=== PATIENT | male | born 1960 | race Caucasian/White ===

== ENCOUNTER 2021-06-01 01:02 | Day surgery (SDC) | payer BC, SELFPAY ==
[2021-05-28 08:43] VITALS: BMI 30.1
--- NOTE | 2021-06-01 07:22 | PM.HPGS ---
History of Present Illness History of Present Illness Consent: Risks, benefits, and alternatives have been discussed and questions answered. Patient agrees to proceed with procedure. Chief complaint: dysphagia Narrative: Nemesio Toussaint is a 61 year old male referred because of epigastric discomfort and dysphagia. He feels like food is getting stuck in his lower esophagus. This had been going on for almost 20 years. Primarily meat is what would get stuck. If he waits for a while it will eventually pass. He was just recently started on omeprazole. Review of Systems Review of Systems: All systems reviewed & are unremarkable except as noted in HPI and below PMFSH Family History Family History Mother Cerebrovascular accident Social History Social History Smoking status: Never smoker (former smoker ) Alcohol intake: never Substance use: never Substance use type: does not use Living arrangements: with family Spiritual care concerns: No Meds Home Medications and Allergies Home Medications Medication Instructions Recorded Confirmed Type omeprazole 40 mg capsule,delayed 40 mg PO DAILY #90 cap 05/14/21 06/01/21 Rx release sildenafil 100 mg tablet 100 mg PO DAILY PRN #30 tablet 05/14/21 06/01/21 Rx calcium-mag oxide-vitamin D3 1 tab-cap PO DAILY 05/28/21 06/01/21 History Allergies Allergy/AdvReac Type Severity Reaction Status Date / Time No Known Allergies Allergy Verified 06/01/21 08:59 Exam Const: General: alert Orientation/consciousness: patient oriented x3 Resp: Auscultation: clear to auscultation bilaterally Cardio: Rhythm: regular rhythm GI: GI Palp: Yes Soft to palpation and No Tenderness to palpation present (GI) Neuro: General: patient oriented x3 Assessment and Plan Assessment and plan (1) Dysphagia: Qualifiers: Dysphagia type: unspecified Qualified Code(s): R13.10 - Dysphagia, unspecified Code(s): R13.10 - Dysphagia, unspecified Status: Acute Assessment and Plan: EGD with possible biopsy or dilatation or cautery.
[2021-06-01 09:00] VITALS: BP 134/80; PULSE 74; RESP 17; TEMP 36.3; O2SAT 98; BMI 30.6
[2021-06-01] MEDS: LACTATED RINGERS 1,000 ML 150 ML IV CONT (09:09)
--- NOTE | 2021-06-01 09:52 | P.PNAN_ITS ---
Anes - Initial Pre Proc Eval Procedure: Operation Date: 06/01/21 10:00 Proposed Procedures p Esophagogastroduodenoscopy - Flavio Turcios MD Date/Time: 06/01/21 09:52 Surgeon: Flavio Turcios MD Pre Op Diagnosis: dysphagia Patient Data Age: 61 Gender: M Height: 1.8 m Weight: 99.6 kg Last Vital Signs Temp 36.3 C L 06/01/21 09:00 Pulse 74 06/01/21 09:00 Resp 17 06/01/21 09:00 BP 134/80 06/01/21 09:00 Pulse Ox 98 06/01/21 09:00 Allergies Allergy/AdvReac Type Severity Reaction Status Date / Time No Known Allergies Allergy Verified 06/01/21 08:59 Home Medications Medication Instructions Recorded Confirmed Type omeprazole 40 mg capsule,delayed 40 mg PO DAILY #90 cap 05/14/21 06/01/21 Rx release sildenafil 100 mg tablet 100 mg PO DAILY PRN #30 tablet 05/14/21 06/01/21 Rx calcium-mag oxide-vitamin D3 1 tab-cap PO DAILY 05/28/21 06/01/21 History Patient hx anesthesia problems: none Family hx anesthesia problems: none Results Review: All pre-operative results and documents have been reviewed as part of the pre-operative evaluation. [facility] Surgical History Surgical History (Updated 06/01/21 @ 09:53 by Alexander Shankar MD) H/O hernia repair Family History Family History Mother Cerebrovascular accident Social History Social History Smoking status: Never smoker (former smoker ) Alcohol intake: never Substance use: never Substance use type: does not use Living arrangements: with family Spiritual care concerns: No Anes - Eval Final PreProcedure Day of Procedure 06/01/21 09:52 Patient weight: obese Heart: regular rate and rhythm Lungs: clear to auscultation Airway: Mallampati scale class II Neurological: alert and oriented Last oral intake: >/= 8 hours ASA classification: II Emergent: no Anesthetic plan: proceed Anesthesia type and monitoring: general GIVS and standard monitoring Results Review: All pre-operative results and documents have been reviewed as part of the pre-operative evaluation. Informed Consent: The patient's anesthetic plan and its attendant risks and benefits were discussed with the patient/family/POA. Questions were solicited and answers provided to the satisfaction of the patient/family/POA.
[2021-06-01 10:44] VITALS: BP 102/74; PULSE 69; RESP 23; O2SAT 100
[2021-06-01 10:54] VITALS: BP 95/69; PULSE 64; RESP 18; O2SAT 99
[2021-06-01 11:04] VITALS: BP 112/72; PULSE 58; RESP 17; O2SAT 99
== END 2021-06-01 11:18 | disposition home or self-care (01) ==
PROVIDERS: PCP Family Medicine; Visit Provider Internal Medicine Gastroenterology
PROC: 0DJ08ZZ Inspection of Upper Intestinal Tract, Via Natural or Artificial Opening Endoscopic (ICD-10-PCS; CPT 43235; principal; 2021-06-01 10:00)
DX: R13.10 Dysphagia, unspecified (principal); K22.2 Esophageal obstruction; K21.00 Gastro-esophageal reflux disease with esophagitis, without bleeding; K22.10 Ulcer of esophagus without bleeding
CPT/HCPCS: 43249; 43239; 88305; C1726; J2001; J2704; J7120

== ENCOUNTER 2022-05-06 01:00 | Day surgery (SDC) | payer BC, SELFPAY ==
[2022-04-26 14:59] VITALS: BMI 30.1
--- NOTE | 2022-05-03 12:43 | PM.HPGS ---
History of Present Illness History of Present Illness Consent: Risks, benefits, and alternatives have been discussed and questions answered. Patient agrees to proceed with procedure. Chief complaint: GERD Narrative: Nemesio Toussaint Jr. is a 61 year old male with history of severe reflux esophagitis and esophageal stricture which was last treated about 1 year ago. he had been started on omeprazole took it twice a day for about 6 weeks. Now he takes it once a day. He has learned to get by by chewing very thoroughly and avoiding stiff meats such as steak. He mostly eats ground beef. Review of Systems Review of Systems: All systems reviewed & are unremarkable except as noted in HPI and below PMFSH Surgical History Surgical History H/O hernia repair Family History Family History Mother Cerebrovascular accident Social History Social History Smoking status: Never smoker (former smoker ) Alcohol intake: never Substance use: never Substance use type: does not use Lack of Transportation: No Lack of Food: Never True Current Housing: I Have Housing Concerned About Future Housing: No Difficulty Paying Gas/Electric Bills: No Difficulty Paying for Meds: No Currently Unemployed: No Education: High School Diploma/GED Difficulty w/ Childcare or Family Care: No Living arrangements: with family Spiritual care concerns: No Meds Home Medications and Allergies Home Medications Medication Instructions Recorded Confirmed Type sildenafil 100 mg tablet (Viagra) 100 mg PO DAILY PRN sexual 05/14/21 03/20/22 Rx activity #30 tabs calcium-mag oxide-vitamin D3 1 tab-cap PO DAILY 05/28/21 04/26/22 History omeprazole 40 mg capsule,delayed 40 mg PO DAILY #90 caps 03/20/22 04/26/22 Rx release Allergies Allergy/AdvReac Type Severity Reaction Status Date / Time No Known Allergies Allergy Verified 05/06/22 07:47 Exam Const: General: alert Orientation/consciousness: patient oriented x3 Resp: Auscultation: clear to auscultation bilaterally Cardio: Rhythm: regular rhythm GI: GI Palp: Yes Soft to palpation and No Tenderness to palpation present (GI) Neuro: General: patient oriented x3 Assessment and Plan Assessment and plan (1) Dysphagia: Qualifiers: Dysphagia type: unspecified Qualified Code(s): R13.10 - Dysphagia, unspecified Code(s): R13.10 - Dysphagia, unspecified Status: Acute Assessment and Plan: EGD with possible biopsy or dilatation or cautery.
[2022-05-06 07:48] VITALS: BP 150/75; PULSE 78; RESP 20; TEMP 36.2; O2SAT 96
[2022-05-06] MEDS: LACTATED RINGERS 1,000 ML 150 ML IV CONT (08:03)
--- NOTE | 2022-05-06 08:23 | WPDANESEPPF ---
Anes - Initial Pre Proc Eval Procedure: Operation Date: 05/06/22 09:00 Proposed Procedures p Esophagogastroduodenoscopy - Flavio Turcios MD Date/Time: 05/06/22 08:23 Surgeon: Flavio Turcios MD Pre Op Diagnosis: GERD Patient Data Age: 61 Gender: M Height: 1.8 m Weight: 104.2 kg Last Vital Signs Temp 36.2 C L 05/06/22 07:48 Pulse 78 05/06/22 07:48 Resp 20 05/06/22 07:48 BP 150/75 H 05/06/22 07:48 Pulse Ox 96 05/06/22 07:48 O2 Del Method Room Air 05/06/22 07:48 Allergies Allergy/AdvReac Type Severity Reaction Status Date / Time No Known Allergies Allergy Verified 05/06/22 07:47 Home Medications Medication Instructions Recorded Confirmed Type sildenafil 100 mg tablet (Viagra) 100 mg PO DAILY PRN sexual 05/14/21 03/20/22 Rx activity #30 tabs calcium-mag oxide-vitamin D3 1 tab-cap PO DAILY 05/28/21 04/26/22 History omeprazole 40 mg capsule,delayed 40 mg PO DAILY #90 caps 03/20/22 04/26/22 Rx release Patient hx anesthesia problems: none Family hx anesthesia problems: none Results Review: All pre-operative results and documents have been reviewed as part of the pre-operative evaluation. [facility] Surgical History Surgical History H/O hernia repair Family History Family History Mother Cerebrovascular accident Social History Social History (Updated 03/20/22 @ 14:27 by Levon Barclay MA) Smoking status: Never smoker (former smoker ) Alcohol intake: never Substance use: never Substance use type: does not use Lack of Transportation: No Lack of Food: Never True Current Housing: I Have Housing Concerned About Future Housing: No Difficulty Paying Gas/Electric Bills: No Difficulty Paying for Meds: No Currently Unemployed: No Education: High School Diploma/GED Difficulty w/ Childcare or Family Care: No Living arrangements: with family Spiritual care concerns: No Anes - Eval Final PreProcedure Day of Procedure 05/06/22 08:23 Patient weight: obese Heart: regular rate and rhythm Lungs: clear to auscultation Airway: Mallampati scale class II Neurological: alert and oriented Last oral intake: >/= 8 hours ASA classification: II Emergent: no Anesthetic plan: proceed Anesthesia type and monitoring: general GIVS and standard monitoring Results Review: All pre-operative results and documents have been reviewed as part of the pre-operative evaluation. Informed Consent: The patient's anesthetic plan and its attendant risks and benefits were discussed with the patient/family/POA. Questions were solicited and answers provided to the satisfaction of the patient/family/POA.
[2022-05-06 09:09] VITALS: BP 114/83; PULSE 79; RESP 19; O2SAT 98
[2022-05-06 09:19] VITALS: BP 120/79; PULSE 66; RESP 18; O2SAT 98
[2022-05-06 09:29] VITALS: BP 117/80; PULSE 61; RESP 19; O2SAT 97
== END 2022-05-06 09:41 | disposition home or self-care (01) ==
PROVIDERS: PCP Family Medicine; Visit Provider Internal Medicine Gastroenterology
PROC: 0DJ08ZZ Inspection of Upper Intestinal Tract, Via Natural or Artificial Opening Endoscopic (ICD-10-PCS; CPT 43235; principal; 2022-05-06 09:00)
DX: R13.10 Dysphagia, unspecified (principal); K22.2 Esophageal obstruction; K21.9 Gastro-esophageal reflux disease without esophagitis; K44.9 Diaphragmatic hernia without obstruction or gangrene
CPT/HCPCS: 43249; 43239; C1726; J2704; J7120

== ENCOUNTER 2022-06-30 23:40 | Observation (INO) | payer BC, SELFPAY ==
--- NOTE | ~2022-06-30 | US_ITS ---
EXAMINATION: US abdomen limited DATE: 07/01/2022 08:55 INDICATION: Epigastric and right upper quadrant abdominal pain. TECHNIQUE: Multiple grayscale and Doppler ultrasound images of the abdomen were obtained. COMPARISON: CT abdomen and pelvis 07/01/2022 FINDINGS: The pancreas is obscured by bowel gas. There is diffuse hepatic steatosis. There is normal flow in main portal vein. The gallbladder is normal in size and contains sludge. No visible gallstone . Gallbladder wall thickening is noted. There is no sonographic Steiner sign. The common duct is terri l and measures 5 mm. IMPRESSION: 1. Gallbladder sludge and gallbladder wall thickening, which is indeterminate for acute cholecystitis . Consider hepatobiliary scintigraphy. 2. Diffuse hepatic steatosis. Reviewed, dictated and finalized at location A. IMPRESSION: 1. Gallbladder sludge and gallbladder wall thickening, which is indeterminate f or acute cholecystitis. Consider hepatobiliary scintigraphy. 2. Diffuse hepatic steatosis.
--- NOTE | ~2022-06-30 | CT_ITS ---
EXAMINATION: CT abdomen pelvis w con DATE: 07/01/2022 01:38 INDICATION: Epigastric abdominal pain. TECHNIQUE: Computed tomography (CT) of the abdomen and pelvis was performed with 100 mL Omnipaque 350 intravenous contrast. Automated exposure control and iterative reconstruction technique were employe d. The dose-length product was 784.15 mGy-cm. COMPARISON: None. FINDINGS: The visualized portions of the lung bases demonstrated mild atelectasis. A calcified right lung nodule is consistent with old granulomatous disease. No pleural effusion. The heart size is norm al. No pericardial effusion. There is a small sliding hiatal hernia. The liver is normal. Calcificati ons in the spleen are consistent with old granulomatous disease. The gallbladder is distended. Gallbl adder wall thickening is noted. The pancreas, adrenal glands, and kidneys are normal. There is a righ t inguinal hernia containing fat. There is diverticulosis of the colon without evidence of diverticul itis. There are no dilated loops of bowel. The appendix is normal. There are no pathologically enlarg ed lymph nodes. There is no free intraperitoneal fluid. The prostate is mildly enlarged. There is sev ere lumbar spondylosis. IMPRESSION: 1. Acute cholecystitis. 2. Right inguinal hernia containing fat. 3. Small sliding hiatal hernia. Reviewed, dictated and finalized at location A.
[2022-06-30 23:42] VITALS: BP 146/84; PULSE 90; RESP 16; TEMP 36.7; O2SAT 98
[2022-07-01] VITALS (15 sets, daily range): BP systolic 125–147; BP diastolic 74–92; PULSE 60–79; RESP 13–27; TEMP 36.5–37; O2SAT 90–100; BMI 31.4
--- NOTE | 2022-07-01 00:21 | ECG_ITS ---
Measurements Intervals [place] Rate: 72 P: 42 [place]: 168 QRS: 33 QRSD: 93 T: 9 QT: 376 QTc: 413 Interpretive Statements SINUS RHYTHM BASELINE ARTIFACT- I, III, AVL NORMAL ECG NO PREVIOUS ECG AVAILABLE FOR COMPARISON Electronically Signed On 07-01-2022 6:43:07 CDT by Chi Todd D.O.
[2022-07-01] MEDS: SODIUM CHLORIDE 0.9% IV 1,000 ML 999 ML IV CONT ×2 (00:47→03:37)
[2022-07-01] MEDS: FAMOTIDINE 20 MG/2 ML VIAL IV PUSH ×2 (00:49→08:53)
[2022-07-01] MEDS: PANTOPRAZOLE SODIUM IV 40 MG VIAL IV PUSH ×2 (00:49→08:53)
[2022-07-01 00:50] LABS: Basophils Absolute Auto 0.1 K/mm3 (0.0-0.1); Basophils Percent Auto 0.6 % (0.2-1.2); Eosinophils Absolute Auto 0.2 K/mm3 (0-0.3); Hematocrit 42.5 % (42.0-52.0); Hemoglobin 14.5 g/dL (14.0-18.0); Immature Granulocyte Absolute 0.03 K/mm3 (0.00-0.031); Immature Granulocyte Percent A 0.3 % (0-0.5); Lymphocytes Absolute Auto 1.04 K/mm3 (0.9-3.2); Mean Corpuscular HGB Conc 34.1 g/dl (32-36); Mean Corpuscular Hemoglobin 30.1 pg (26-34); Mean Corpuscular Volume 88.4 fl (80-100); Mean Platelet Volume 9.1 fl (7.4-10.4); Monocytes Absolute Auto 0.8 K/mm3 (0.1-0.6); Monocytes Percent Auto 8.3 % (2.6-8.5); Neutrophils Absolute Auto 7.4 K/mm3 (1.3-6.7); Neutrophils Percent Auto 77.8 % (45.5-73.1); Platelet Count Result 196 k/mm3 (150-375); Red Blood Count 4.81 M/mm3 (4.6-6.20); Red Cell Distribution Width 12.1 % (11.5-14.5); White Blood Count 9.5 K/mm3 (4.5-10.0)
--- NOTE | 2022-07-01 00:53 | PC.NURSE ---
After drawing up the reglan, patient then refused medication. Patient also refused IV morphine. Reglan was wasted and the morphine returned to the [facility].
[2022-07-01 01:02] LABS: Alanine Aminotransferase 24 U/L (6-50); Albumin Level 4.4 g/dL (3.5-5.1); Alkaline Phosphatase 84 U/L (38-126); Anion Gap 9 mmol/L (8-16); Aspartate Amino Transferase 31 U/L (17-59); Bilirubin,Total 1.5 mg/dL (0.2-1.3); Blood Urea Nitrogen 19 mg/dL (9-20); Calcium 8.9 mg/dL (8.4-10.2); Carbon Dioxide 27 mmol/L (22-30); Chloride 102 mmol/L (98-107); Estimated CRCL calculation 81 ml/min; Estimated Glomerular Filt Rate > 60; Glucose 116 mg/dL (65-110); Lipase 81 U/L (23-300); Magnesium 1.8 mg/dL (1.6-2.3); Potassium 3.4 mmol/L (3.4-5.0); Sodium 138 mmol/L (137-145)
[2022-07-01 01:03] LABS: Lactic Acid Reflex 1.1 mmol/L (0.7-2.0)
[2022-07-01 01:13] LABS: Troponin I < 0.012 ng/mL (0.000-0.034)
[2022-07-01 02:20] LABS: Appearance Urine Clear (Clear); Bilirubin Urine Negative (Negative); Blood Urine Negative (Negative); Color Urine Yellow (Yellow); Glucose Urine UA Negative (Negative); Ketones Urine 1+ mg/dL (Negative); Leukocyte Esterase Ur Negative LEU/UL (Negative); Nitrate Urine Negative (Negative); Protein Urine Negative (Negative); pH Urine 6.5 (5.0-9.0)
[2022-07-01 02:22] LABS: Specific Grav Ur 1.058 (1.001-1.035)
[2022-07-01 03:18] LABS: Add Urine Microscopic? NO
--- NOTE | 2022-07-01 03:27 | ED.GENADULT ---
HPI - General Adult General Chief complaint: Abdominal Pain Stated complaint: abdominal/epigastric pain Time Seen by Provider: 07/01/22 00:15 History of Present Illness HPI narrative: Patient is a 62-year-old gentleman who presents the emergency department with chief complaint of epigastric pain. The patient reports that he has had issues with esophageal strictures and reports that he was scoped about a month ago and had stretching done at that time. Patient reports that for the last week he has had pain in the epigastric region reports that it does not radiate anywhere reports that its not improved by anything Related Data Home Medications Medication Instructions Recorded Confirmed calcium-mag oxide-vitamin D3 1 tab-cap PO DAILY 05/28/21 04/26/22 Allergies Allergy/AdvReac Type Severity Reaction Status Date / Time No Known Allergies Allergy Verified 06/30/22 23:41 Review of Systems Review of Systems: A 10 system review of systems was completed on the patient and is negative except for what is stated in the HPI. Nursing and ancillary documentation was reviewed. [facility] Surgical History Surgical History H/O hernia repair Family History Family History Mother Cerebrovascular accident Social History Social History Smoking status: Never smoker (former smoker ) Alcohol intake: never Substance use: never Substance use type: does not use Lack of Transportation: No Lack of Food: Never True Current Housing: I Have Housing Concerned About Future Housing: No Difficulty Paying Gas/Electric Bills: No Difficulty Paying for Meds: No Currently Unemployed: No Education: High School Diploma/GED Difficulty w/ Childcare or Family Care: No Living arrangements: with family Spiritual care concerns: No Exam Narrative: GENERAL: Well-appearing, well-nourished, and in no acute distress. HEAD: Normocephalic, atraumatic. EYES: PERRLA and EOMI. ENT: Nares clear, no rhinorrhea or epistaxis. Mucous membranes moist. NECK: Supple. CHEST: Clear to auscultation. No respiratory distress. HEART: Regular rate and rhythm. No murmur heard. Normal peripheral pulses. ABDOMEN: Soft, mild tenderness in the epigastric region, nondistended, normal active bowel sounds. EXTREMITIES: Normal range of motion. No edema. SKIN: Warm, dry, no rash. NEURO: No focal deficits. Alert and oriented x3. PSYCH: Normal mood and affect. Course Vital Signs Vital signs: Vital Signs Temperature 36.7 C 06/30/22 23:42 Pulse Rate 90 06/30/22 23:42 Respiratory Rate 16 06/30/22 23:42 Blood Pressure 146/84 H 06/30/22 23:42 Pulse Oximetry 98 06/30/22 23:42 Oxygen Delivery Room Air 06/30/22 23:42 Temperature 36.7 C 06/30/22 23:42 Pulse Rate 66 07/01/22 02:31 Respiratory Rate 14 07/01/22 02:31 Blood Pressure 147/82 H 07/01/22 02:31 Pulse Oximetry 98 07/01/22 02:18 Oxygen Delivery Room Air 06/30/22 23:42 Medical Decision Making [facility] Narrative Medical decision making narrative: Differential diagnosis includes gastritis, cholelithiasis, cholecystitis, acalculous cholecystitis pancreatitis, Oratory studies were obtained showed a normal white blood cell count at 9.5 electrolytes were obtained which were within normal limits liver enzymes showed a normal AST and normal ALT and a bilirubin of 1.5. Due to the patient having epigastric pain and EKG and troponin were checked that showed no evidence of acute findings troponin was less than 0.012 and EKG showed sinus rhythm with a rate of [address] elevation or ST depression CT scan of the abdomen pelvis was obtained which showed some abnormal pericholecystic edema no mention to cholelithiasis was noted on the exam no evidence of bowel obstruction appendicitis
--- NOTE | 2022-07-01 04:26 | PM.IMHP ---
H&P: HPI History of Present Illness Date/Time: 07/01/22 04:26 Chief Complaint: Epigastric pain Narrative: This is a 62-year-old male with past medical history significant for esophageal stricture status post dilatation. Patient presents to the emergency room due to epigastric pain for the last 3 days with poor per orally intake took ibuprofen but did not relieve denies any nausea, vomiting, diarrhea, hematemesis, coffee-ground emesis, bright red blood per rectum, melena, no weight loss, patient has been his usual state of health up until this point, pain is localized to the epigastric area nonradiating no relationship with food intake, relieved by pain medication, rated at 5 to 7/10 in intensity it is achy pain, nagging. Preliminary report CT of abdomen and pelvis was reported as: EXAMINATION: CT abdomen pelvis w con DATE: 07/01/2022 01:38 INDICATION: Epigastric abdominal pain. TECHNIQUE: Computed tomography (CT) of the abdomen and pelvis was performed with 100 mL Omnipaque 350 intravenous contrast. Automated exposure control and iterative reconstruction technique were employed. The dose-length product was 784.15 mGy-cm. COMPARISON: None. FINDINGS: The visualized portions of the lung bases demonstrated mild atelectasis. A calcified right lung nodule is consistent with old granulomatous disease. No pleural effusion. The heart size is normal. No pericardial effusion. There is a small sliding hiatal hernia. The liver is normal. Calcifications in the spleen are consistent with old granulomatous disease. The gallbladder is distended. Gallbladder wall thickening is noted. The pancreas, adrenal glands, and kidneys are normal. There is a right inguinal hernia containing fat. There is diverticulosis of the colon without evidence of diverticulitis. There are no dilated loops of bowel. The appendix is normal. There are no pathologically enlarged lymph nodes. There is no free intraperitoneal fluid. The prostate is mildly enlarged. There is severe lumbar spondylosis. IMPRESSION: 1. Acute cholecystitis. 2. Right inguinal hernia containing fat. 3. Small sliding hiatal hernia. Patient is been placed in observation for further evaluation management and treatment. Review of Systems Review of Systems: Epigastric pain Constitutional: Constitutional: Denies chills, Denies fatigue, Denies fever(s), Denies lethargy, Denies malaise, Denies night sweats, Denies poor appetite, Denies weakness and Denies weight loss Eyes: Eyes: Denies change in vision ENT: Denies dysphagia and Denies odynophagia Cardiovascular: Cardiovascular: Denies chest pain, Denies leg edema, Denies lightheadedness and Denies palpitations Respiratory: Respiratory: Denies chest congestion and Denies excessive phlegm production Gastrointestinal: Gastrointestinal: Reports abdominal pain, Denies melena, Denies hematochezia, Denies coffee ground emesis, Denies dyspepsia, Denies heartburn, Denies diarrhea, Denies nausea and Denies vomiting Genitourinary: Genitourinary: Denies dysuria Musculoskeletal: Musculoskeletal: Denies back pain, Denies myalgias and Denies joint swelling Integumentary/Breasts: Skin/Breast: Denies rash Neurologic: Denies vertigo, Denies dizziness, Denies focal weakness and Denies Sensory deficit (Neuro) Psychiatric: Psychiatric: Reports no additional psychiatric complaints and Reports as per HPI Endocrine: Endocrine: Denies cold intolerance, Denies flushing, Denies heat intolerance, Denies polyphagia, Denies polydipsia and Denies palpitations Hematologic/Lymphatic: Hematologic/Lymphatic: Reports no additional hematologic/lymphatic complaints and Reports as per HPI Allergic/Immunologic: Allergic/Immunologic: Reports no additional allergic/immunologic complaints and Reports as per HPI [facility] Surgical History Surgical History H/O hernia repair Family History Family History (Reviewed 07/01/22 @ 08:11
--- NOTE | 2022-07-01 05:02 | PC.NURSE ---
Attempted to call report, 3rd Charge said RN taking patient would call back when ready.
--- NOTE | 2022-07-01 05:16 | PC.NURSE ---
0514 Attempted to call report, spoke to Kumar, she stated the RN taking the patient is still in the room and unavailable. This nurse asked if we could bring the patient up, she stated I can't say. ER money order clerk aware.
[2022-07-01] MEDS: SODIUM CHLORIDE 0.9% IV 1,000 ML 125 ML IV CONT ×2 (05:52→15:47)
--- NOTE | 2022-07-01 06:03 | ADMGEN ---
This patient, Nemesio Toussaint Jr., was admitted to [facility] Surg Room 331-02 at 0535. Patient/family oriented to hospital policies and general routines including ID bracelet, bed and alarms, visiting hours, pain management, procedures, bathroom and other care routines, personal items, smoking policy, room service/diet, and visiting hours. Information on how to activate the Rapid Response Team has been discussed. Patient/Family are encouraged to report perceived risks to care and to ask questions if they do not understand what they are told or what they should do.
--- NOTE | 2022-07-01 08:08 | PM.CNGS ---
Assessment and Plan Assessment and plan (1) Epigastric pain: Code(s): R10.13 - Epigastric pain Status: Acute Assessment and Plan: Pain is improving with little treatment. Agree with ultrasound. If patient does have gallstones would need to have elective outpatient laparoscopic cholecystectomy. If no gallstones could probably be discharged on low-fat diet and follow up in the office for further management. Thank you for asking us to see this patient in consultation. History of Present Illness Consult details Consult date: 07/01/22 Reason for consult: abdominal pain Requesting physician: Roel Reed MD Narrative: Patient is a 62-year-old man who 4-5 days ago started noticing some upper abdominal pain. It started in the right upper quadrant but then moved to the epigastric area. It was particularly bad Friday and yesterday. He came to the emergency room where he was noted to have epigastric tenderness. Cardiac evaluation was performed and was negative for acute coronary syndrome. He had a CT scan of the abdomen and pelvis which showed gallbladder wall thickening and some gallbladder distention. No stones were noted. He had a shorter and milder episode of this several weeks ago which resolved on its own. He has no family history of gallbladder disease. He has not had any pain medication and reports that his pain is much improved from when he went to the emergency room. He has not had any nausea vomiting or fever. He was admitted for persistent epigastric abdominal pain and is scheduled to have an ultrasound today. He is seen now in consultation. He does have a history of esophageal reflux and stricture. He had 2 esophageal dilatations, the last was just couple of months ago per Dr. Turcios. Review of Systems Review of Systems: All systems reviewed & are unremarkable except as noted in HPI and below (HPI and those items noted below) Constitutional: Constitutional: Denies chills and Denies fever(s) Cardiovascular: Cardiovascular: Denies chest pain, Denies diaphoresis, Denies dyspnea and Denies paroxysmal nocturnal dyspnea Respiratory: Respiratory: Denies chest congestion, Denies cough and Denies dyspnea Integumentary/Breasts: Skin/Breast: Denies lesions and Denies rash [facility] Surgical History Surgical History H/O hernia repair Family History Family History Mother Cerebrovascular accident Social History Social History Smoking status: Former smoker Tobacco type: cigarettes Alcohol intake: never Substance use: never Substance use type: does not use Lack of Transportation: No Lack of Food: Never True Current Housing: I Have Housing Concerned About Future Housing: No Difficulty Paying Gas/Electric Bills: No Difficulty Paying for Meds: No Currently Unemployed: No Education: High School Diploma/GED Difficulty w/ Childcare or Family Care: No Living arrangements: with family Spiritual care concerns: No Meds Home Medications and Allergies Home Medications Medication Instructions Recorded Confirmed Type calcium-mag oxide-vitamin D3 1 tab-cap PO DAILY 05/28/21 07/01/22 History omeprazole 40 mg capsule,delayed 40 mg PO DAILY #90 caps 03/20/22 07/01/22 Rx release Allergies Allergy/AdvReac Type Severity Reaction Status Date / Time No Known Allergies Allergy Verified 06/30/22 23:41 Vital Signs Vital Signs - 24 hr 06/30/22 23:42 07/01/22 00:38 07/01/22 00:46 Temperature 36.7 C Pulse Rate 90 70 66 Respiratory Rate 16 27 H 15 Blood Pressure 146/84 H 131/84 135/92 H Pulse Oximetry 98 98 98 Oxygen Delivery Room Air 07/01/22 01:01 07/01/22 02:18 07/01/22 02:31 Temperature Pulse Rate 69 68 66 Respiratory Rate 16 14 14 Blood Pressure 142/83 H 144/81 H 147/82 H Pul
--- NOTE | 2022-07-01 18:29 | PM.DS ---
DS: Admitting Diagnosis Discharge Date 07/01/22 Admitting Diagnosis abd pain DS: Discharge Diagnosis Discharge Diagnosis (1) Epigastric pain: Code(s): R10.13 - Epigastric pain Status: Acute Assessment and Plan: us negative (2) Esophageal reflux: Qualifiers: Esophagitis presence: without esophagitis Qualified Code(s): K21.9 - Gastro-esophageal reflux disease without esophagitis Code(s): K21.9 - Gastro-esophageal reflux disease without esophagitis Status: Acute Assessment and Plan: PPI (3) Dysphagia: Qualifiers: Dysphagia type: unspecified Qualified Code(s): R13.10 - Dysphagia, unspecified Code(s): R13.10 - Dysphagia, unspecified Status: Acute Assessment and Plan: Esophageal stricture status post dilatation 2 months ago DS: Summary Hospital Course Hospital Course: Admitted for abdominal pain - crowder unrevealing - fu with general surgery for possible outpatient cholecystectomy Time Spent with Patient Time attestation: Total time spent providing and/or coordinating discharge services: Exam Const: General: comfortable, no acute distress, well developed, alert, awake, average body habitus and other (Well-appearing) Nutritional Appearance: average body habitus Orientation/consciousness: patient oriented x3 HENMT: Head: normal to inspection, normocephalic and atraumatic Ears: hearing grossly normal bilaterally Face/Nose/Sinus: normal facial exam Face and sinus: normal facial exam Eyes: General: appearance normal, both eyes and all related structures Pupils: Equal, round and reactive pupils present EOM: EOMs intact bilaterally Neck: Neck: full ROM, no lymphadenopathy and no JVD Thyroid: thyroid normal Lymphatic: no lymphadenopathy noted Resp: Effort & Inspection: normal respiratory effort and able to speak in complete sentences Auscultation: clear to auscultation bilaterally Cardio: Jugular venous distension: no JVD Rate: regular rate Rhythm: regular rhythm Heart sounds: S1 normal heart sound present and S2 normal heart sound present GI: Inspection: normal to inspection : General: Yes deferred Skin: Rashes: no rashes Wounds: no wounds Neuro: General: patient oriented x3 and CN's II-XI intact bilaterally Cranial nerves: Yes CN's II-XII intact bilaterally and Yes Equal, round and reactive pupils present Cognition (Neuro): normal cognition Speech: normal speech Gait exam (Neuro): Normal gait present Motor exam (neuro): 5/5 motor strength present throughout Sensory Exam: No Sensory deficit (Neuro) Extrem: General: normal to inspection, full ROM, no joint enlargement and no pedal edema DS: Data Data Completed and Pending Labs on day of discharge: Labs from last 24 hours 07/01/22 07/01/22 02:11 00:44 WBC 9.5 RBC 4.81 Hgb 14.5 Hct 42.5 MCV 88.4 MCH 30.1 MCHC 34.1 RDW 12.1 Plt Count 196 MPV 9.1 Immature Gran % (Auto) 0.3 Neut % (Auto) 77.8 H Lymph % (Auto) 11.0 L [place] % (Auto) 8.3 Eos % (Auto) 2.0 Baso % (Auto) 0.6 Lymph # (Auto) 1.04 [place] # (Auto) 0.8 H Eos # (Auto) 0.2 Baso # (Auto) 0.1 Abs Immat Gran (auto) 0.03 Absolute Neuts (auto) 7.4 H Absolute Nucleated RBC 0.0 Nucleated RBC % 0.0 Sodium 138 Potassium 3.4 Chloride 102 Carbon Dioxide 27 Anion Gap 9 BUN 19 Creatinine 1.00 Estim Creat Clear Calc 81 Estimated GFR > 60 Glucose 116 H Lactic Acid 1.1 Calcium 8.9 Magnesium 1.8 Total Bilirubin 1.5 H AST 31 ALT 24 Alkaline Phosphatase 84 Troponin I < 0.012 Total Protein 8.0 Albumin 4.4 Lipase 81 Urine Color Yellow Urine Appearance Clear Urine pH 6.5 Ur Specific Velma 1.058 H Urine Protein Negative Urine Glucose (UA) Negative Urine Ketones 1+ H Ur Blood (Man) Negative Urine Nitrate Negative Urine Bilirubin Negative Urine Urobilinogen 1.0 Leukocyte Esterase Rfl Negative
== END 2022-07-01 18:50 | disposition home or self-care (01) ==
LOC: ANHED 07-01 04:28 → ANH3MEDSUR 07-01 05:24
PROVIDERS: Admitting Provider Internal Medicine; Emergency Provider Emergency Medicine; PCP Family Medicine; Visit Provider Chiropractor
DX: K21.9 Gastro-esophageal reflux disease without esophagitis (principal); R13.10 Dysphagia, unspecified; J98.11 Atelectasis; J98.4 Other disorders of lung; K76.0 Fatty (change of) liver, not elsewhere classified; K40.90 Unilateral inguinal hernia, without obstruction or gangrene, not specified as recurrent; K57.90 Diverticulosis of intestine, part unspecified, without perforation or abscess without bleeding; K81.0 Acute cholecystitis; Z79.899 Other long term (current) drug therapy; Z87.891 Personal history of nicotine dependence
CPT/HCPCS: 36415; 74177; 76705; 80053; 81003; 83605; 83690; 83735; 84484; 85025; 93005; 96361; 96374; 96375; 96376; 99285; C9113; G0378; J7030; Q9967

== ENCOUNTER 2022-07-06 23:12 | Inpatient (IN) | payer BC, SELFPAY ==
--- NOTE | ~2022-07-06 | XR_ITS ---
EXAMINATION: XR ERCP DATE: 07/08/2022 08:57 INDICATION: Jaundice. Abnormal liver function tests. Abnormal pancreatic test. TECHNIQUE: 2 spot fluoroscopic images of the right upper quadrant were obtained during endoscopic ret rograde cholangiopancreatography (ERCP). Fluoroscopy exposure time was 86 seconds. COMPARISON: CT abdomen and pelvis 07/07/2022 FINDINGS: The endoscope is in the second portion of the duodenum. There is opacification of the commo n duct, which is mildly dilated. IMPRESSION: 1. Mildly dilated common duct. Please refer to the ERCP procedure note for additional details. Reviewed, dictated and finalized at location A. IMPRESSION: 1. Mildly dilated common duct. Please refer to the ERCP procedure note for sandoval tional details.
--- NOTE | ~2022-07-06 | CT_ITS ---
EXAMINATION: CT abdomen pelvis w con DATE: 07/07/2022 03:26 INDICATION: Evaluate gallbladder. Fever and right upper quadrant pain. TECHNIQUE: Computed tomography (CT) of the abdomen and pelvis was performed with 100 cc Omnipaque 350 intravenous contrast. The dose-length product was 1006.15 mGy-cm. Automated exposure control and ite rative reconstruction technique were employed. COMPARISON: CT dated 07/01/2022. FINDINGS: Heart size normal. Bibasilar dependent atelectasis. No significant pleural or pericardial e ffusion. There are calcified granulomas of the spleen. There is thickening of the gallbladder wall wi th pericholecystic edema. No definite radiopaque stones. No biliary dilatation. The liver, pancreas, adrenal glands and kidneys are unremarkable. No significant vascular abnormality. No lymphadenopathy. Fat-containing right inguinal hernia. Colonic diverticulosis without evidence for diverticulitis. IMPRESSION: 1. Gallbladder wall thickening with persistent pericholecystic edema, suspicious for cholecystitis. Reviewed, dictated and finalized at location A. IMPRESSION: 1. Gallbladder wall thickening with persistent pericholecystic edema, suspiciou s for cholecystitis.
[2022-07-06 23:20] VITALS: BP 120/70; PULSE 97; RESP 16; TEMP 39.4; O2SAT 93
[2022-07-07] VITALS (51 sets, daily range): BP systolic 85–132; BP diastolic 57–76; PULSE 48–88; RESP 14–20; TEMP 35.6–36.6; O2SAT 93–100; BMI 31.6
--- NOTE | 2022-07-07 02:07 | ECG_ITS ---
Measurements Intervals [place] Rate: 74 P: 36 GA: 159 QRS: 29 QRSD: 91 T: -11 QT: 356 QTc: 395 Interpretive Statements SINUS RHYTHM BORDERLINE ST-T WAVE ABNORMALITY- INFERIOR LEADS BORDERLINE ECG COMPARED TO ECG 07/01/2022 00:38:10 NO SIGNIFICANT CHANGES Electronically Signed On 07-07-2022 8:03:59 CDT by Chi Todd D.O.
[2022-07-07] MEDS: HYDROmorphone HCL INJ (*CRX) 1 MG/ML SYR 0.5 MG IV PUSH (02:28)
[2022-07-07 02:29] LABS: Basophils Absolute Auto 0.1 K/mm3 (0.0-0.1); Basophils Percent Auto 0.5 % (0.2-1.2); Eosinophils Percent Auto 0.1 % (0-4.4); Hematocrit 38.4 % (42.0-52.0); Hemoglobin 13.2 g/dL (14.0-18.0); Immature Granulocyte Absolute 0.04 K/mm3 (0.00-0.031); Immature Granulocyte Percent A 0.4 % (0-0.5); Lymphocytes Absolute Auto 0.45 K/mm3 (0.9-3.2); Lymphocytes Percent Auto 4.1 % (18.3-44.2); Mean Corpuscular HGB Conc 34.4 g/dl (32-36); Mean Corpuscular Hemoglobin 30.1 pg (26-34); Mean Corpuscular Volume 87.5 fl (80-100); Monocytes Absolute Auto 0.9 K/mm3 (0.1-0.6); Monocytes Percent Auto 7.9 % (2.6-8.5); Neutrophils Absolute Auto 9.7 K/mm3 (1.3-6.7); Platelet Count Result 190 k/mm3 (150-375); Red Blood Count 4.39 M/mm3 (4.6-6.20); White Blood Count 11.1 K/mm3 (4.5-10.0)
[2022-07-07] MEDS: SODIUM CHLORIDE 0.9% IV 3,000 ML 999 ML IV CONT (02:30)
[2022-07-07 02:38] LABS: Lactic Acid Reflex 0.8 mmol/L (0.7-2.0)
[2022-07-07 02:41] LABS: Alanine Aminotransferase 218 U/L (6-50); Albumin Level 3.8 g/dL (3.5-5.1); Alkaline Phosphatase 273 U/L (38-126); Anion Gap 9 mmol/L (8-16); Aspartate Amino Transferase 228 U/L (17-59); Bilirubin,Total 3.2 mg/dL (0.2-1.3); Blood Urea Nitrogen 15 mg/dL (9-20); Calcium 8.6 mg/dL (8.4-10.2); Carbon Dioxide 24 mmol/L (22-30); Chloride 102 mmol/L (98-107); Estimated CRCL calculation 62 ml/min; Estimated Glomerular Filt Rate > 60; Glucose 129 mg/dL (65-110); INR 1.1; Magnesium 1.9 mg/dL (1.6-2.3); Potassium 3.5 mmol/L (3.4-5.0); Prothrombin Time 15.1 Seconds (11.1-14.7); Sodium 135 mmol/L (137-145)
[2022-07-07 02:42] LABS: Partial Thromboplastin Time 29.5 SECONDS (22.3-36.8)
[2022-07-07 02:50] LABS: Platelet Estimate Adequate (Adequate); Schistocytes None Seen (NORMAL)
[2022-07-07] MEDS: PIPERACILLN/TAZ 3.375GM/NS50ML 3.375 GM/50 ML BAG IVPB ×4 (02:58→23:09)
[2022-07-07 03:14] LABS: Lipase 13243 U/L (23-300)
--- NOTE | 2022-07-07 04:47 | ED.GENADULT ---
HPI - General Adult General Chief complaint: Abdominal Pain Stated complaint: abdominal pain Time Seen by Provider: 07/07/22 00:41 History of Present Illness HPI narrative: this is a 62-year-old male presenting ED with right upper quadrant pain. The patient was seen in our emergency department on 07/01 . Patient was admitted for concerns for cholecystitis. After the patient was evaluated by Dr. Anderson and discharged with outpatient follow-up. The patient's pain recurred this evening. He has had temperatures up to 103. He has been taking Tylenol home with some relief. Related Data Home Medications Medication Instructions Recorded Confirmed calcium-mag oxide-vitamin D3 1 tab-cap PO DAILY 05/28/21 07/01/22 Allergies Allergy/AdvReac Type Severity Reaction Status Date / Time No Known Allergies Allergy Verified 07/07/22 00:49 [facility] Surgical History Surgical History H/O hernia repair Family History Family History Mother Cerebrovascular accident Social History Social History Smoking status: Former smoker Tobacco type: cigarettes Alcohol intake: never Substance use: never Substance use type: does not use Lack of Transportation: No Lack of Food: Never True Current Housing: I Have Housing Concerned About Future Housing: No Difficulty Paying Gas/Electric Bills: No Difficulty Paying for Meds: No Currently Unemployed: No Education: High School Diploma/GED Difficulty w/ Childcare or Family Care: No Living arrangements: with family Spiritual care concerns: No Exam Narrative: APPEARANCE: Patient is lying supine in bed. He is diaphoretic. Head: atraumatic. EYES: EOMI, NOSE: Atraumatic NECK: Trachea midline RESPIRATORY: No increased rate of breathing CARDIOVASCULAR: RRR, ABDOMINAL: Tenderness to palpation in the right upper quadrant with voluntary guarding. MUSCULOSKELETAl: No obvious deformities NEURO: Alert. Moving 4/4 extremities SKIN:: Warm, dry. Normal color PSYCHIATRIC: Normal affect Course Vital Signs Vital signs: Vital Signs Temperature 103.0 F H 07/06/22 23:20 Pulse Rate 97 07/06/22 23:20 Respiratory Rate 16 07/06/22 23:20 Blood Pressure 120/70 07/06/22 23:20 Pulse Oximetry 93 07/06/22 23:20 Oxygen Delivery Room Air 07/06/22 23:20 Temperature 103.0 F H 07/06/22 23:20 Pulse Rate 76 07/07/22 04:15 Respiratory Rate 16 07/07/22 04:15 Blood Pressure 88/58 L 07/07/22 04:15 Pulse Oximetry 94 07/07/22 04:15 Oxygen Delivery Room Air 07/06/22 23:20 Medical Decision Making MDM Narrative Medical decision making narrative: -Presentation: 62-year-old male presenting for right upper quadrant pain. Patient was evaluated several days ago for concerns for cholecystitis and was discharged. Since then he has developed fevers and increased pain. -DDX includes but is not limited to: acute cholecystitis, choledocholithiasis, cholangitis, sepsis -Co-morbidities complicating care: GERD -Social determinants of health: patient works at a [employer] on the [place] Lives with his Amanda. -External Chart Review: Review of previous ER admission notes. Review of previous gallbladder studies. -Hx from independent Sources: at bedside -Discussion of Management/Consultants: Dr. Turcios - GI, Dr. Nova-engineer process, [facility] -Hospitalist -Independent interpretation of studies: white blood cell count is 11. Patient is febrile to 103. Bilirubin is elevated 3.2, AST 228, ALT 218, alk-phos 273, lipase [id number]. patient's presentation is concerning for ascending cholangitis. CT abdomen pelvis is pending due to stat rad delays. Independent EKG interpretation: Rhythm [sinus], Rate [74], [place] -[normal], MD -[normal], QRS [narrow], QTC [normal], T waves -
[2022-07-07] MEDS: SODIUM CHLORIDE 0.9% IV 1,000 ML 999 ML IV CONT (05:00)
[2022-07-07] MEDS: LACTATED RINGERS 1,000 ML 125 ML IV CONT ×2 (06:53→16:07)
--- NOTE | 2022-07-07 07:38 | WPDGICN ---
Assessment and Plan Assessment and plan (1) Acute pancreatitis: Code(s): K85.90 - Acute pancreatitis without necrosis or infection, unspecified Status: Acute Assessment and Plan: Laboratory studies reveal that his lipase which was normal a week ago is now over 13,000. Likewise liver function studies are increased. His bilirubin is 3.2. AST and ALT are 228 and 218 respectively and alkaline phosphatase is also elevated. CT scan has been done but not yet read. I explained to him that his pancreatitis is almost certainly due to bile duct sludge and/or stones. I told that we will perform ERCP tomorrow. Until then he will be given water and ice chips. Perhaps he could have some clear liquids later today. I discussed with him the technique of ERCP and possible complications such as pancreatitis, bleeding and perforation. (2) Ascending cholangitis: Code(s): K83.09 - Other cholangitis Status: Acute Assessment and Plan: Clinically, given the laboratory studies and his fever with chills he likely has cholangitis. This would be secondary to common bile duct calculi. ERCP will be scheduled. This will be done tomorrow because unfortunately do not have the personnel an back to perform that procedure today. He has been started on antibiotics. (3) Esophageal reflux: Qualifiers: Esophagitis presence: without esophagitis Qualified Code(s): K21.9 - Gastro-esophageal reflux disease without esophagitis Code(s): K21.9 - Gastro-esophageal reflux disease without esophagitis Status: Acute Assessment and Plan: He has history of acid reflux and has had esophageal strictures. I most recently performed esophageal dilatation a couple months ago. He is not having any dysphagia recently. GI Consult Note Consult date/time: 07/07/22 07:38 HPI: Nemesio Toussaint Jr. is a 62 year old male Well known to me because of recurrent esophageal stricture. He began having abdominal pain about 1 week ago. On July 01 he came to the emergency room with complaint of having had abdominal pain on and off for few days prior to that. Because the pain was high in the epigastric area he had cardiac evaluation which was negative. CT scan showed gallbladder wall thickening but no stones. Ultrasound also showed some hepatic steatosis. That time his liver function studies were normal except for slight elevation of his bilirubin at 1.5. Since then he has had a couple of attacks of pain each lasting 6-10 hours. He had no vomiting or nausea with those and has been able to eat. He did notice that his urine has been dark all week. He has no pruritus. Began having fever and chills yesterday and in fact here in emergency room has a temperature 103?. Laboratory studies reveal that his lipase which was normal a week ago is now over 13,000. Likewise liver function studies are increased. His bilirubin is 3.2. AST and ALT are 228 and 218 respectively and alkaline phosphatase is also elevated. CT scan has been done but not yet read. He has been started on Zosyn and has received 1 dose so far. Review of Systems Review of Systems: All systems reviewed & are unremarkable except as noted in HPI and below [facility] Surgical History Surgical History H/O hernia repair Family History Family History Mother Cerebrovascular accident Social History Social History Smoking status: Former smoker Tobacco type: cigarettes Alcohol intake: never Substance use: never Substance use type: does not use Lack of Transportation: No Lack of Food: Never True Current Housing: I Have Housing Concerned About Future Housing: No Difficulty Paying Gas/Electric Bills: No Difficulty Paying for Meds: No Currently Unemployed: No Education: High School Diploma
--- NOTE | 2022-07-07 09:21 | ADMGEN ---
This patient, Nemesio Toussaint Jr., was admitted to IMU Room 203-01 at 0834. Patient/family oriented to hospital policies and general routines including ID bracelet, bed and alarms, visiting hours, pain management, procedures, bathroom and other care routines, personal items, smoking policy, room service/diet, and visiting hours. Information on how to activate the Rapid Response Team has been discussed. Patient/Family are encouraged to report perceived risks to care and to ask questions if they do not understand what they are told or what they should do.
--- NOTE | 2022-07-07 11:27 | PM.CNGS ---
Assessment and Plan Assessment and plan (1) Biliary acute pancreatitis: Code(s): K85.10 - Biliary acute pancreatitis without necrosis or infection Status: Acute Assessment and Plan: serial labs/exams, ERCP tomorrow, IV abx, interval cholecystectomy (2) Ascending cholangitis: Code(s): K83.09 - Other cholangitis Status: Acute Assessment and Plan: see above, broad spectrum abx History of Present Illness Consult details Consult date: 07/07/22 Reason for consult: abdominal pain Requesting physician: Flavio Turcios MD Narrative: The patient is a 62-year-old male presenting to the emergency department complaining of severe epigastric abdominal pain with radiation to his back. The patient reports that the pain has been intermittent for over the last week, however has acutely worsened over the last day. The patient was actually seen in the emergency department last week with acute cholecystitis. He was scheduled to see Dr. Anderson as an outpatient. The patient does note some darker urine over the last week along with the abdominal complaints. The patient reports associated nausea and bloating. Workup, including imaging, is significant for biliary pancreatitis. Review of Systems Constitutional: Constitutional: Reports as per HPI, Reports anorexia, Denies chills, Reports fatigue, Denies fever(s), Reports lethargy, Reports malaise, Reports poor appetite, Reports weakness, Denies weight gain and Denies weight loss Eyes: Eyes: Reports no additional eye complaints ENT: Reports system reviewed and no additional complaints, except as documented Cardiovascular: Cardiovascular: Reports no additional cardiovascular complaints Respiratory: Respiratory: Reports no additional respiratory complaints Gastrointestinal: Gastrointestinal: Reports as per HPI, Reports abdominal pain, Reports bloating, Reports GI cramping, Reports early satiety, Reports heartburn, Reports nausea and Denies vomiting Genitourinary: Genitourinary: Reports no additional male genitourinary complaints Musculoskeletal: Musculoskeletal: Reports no additional musculoskeletal complaints Integumentary/Breasts: Skin/Breast: Reports system reviewed and no additional complaints, except as docu Neurologic: Reports system reviewed and no additional complaints, except as documented Psychiatric: Psychiatric: Reports no additional psychiatric complaints Endocrine: Endocrine: Reports no additional endocrine complaints Hematologic/Lymphatic: Hematologic/Lymphatic: Reports no additional hematologic/lymphatic complaints Allergic/Immunologic: Allergic/Immunologic: Reports no additional allergic/immunologic complaints [facility] Surgical History Surgical History H/O hernia repair Family History Family History Mother Cerebrovascular accident Social History Social History Smoking status: Never smoker Tobacco type: cigarettes Alcohol intake: never Substance use: never Substance use type: does not use Lack of Transportation: No Lack of Food: Never True Current Housing: I Have Housing Concerned About Future Housing: No Difficulty Paying Gas/Electric Bills: No Difficulty Paying for Meds: No Currently Unemployed: No Education: High School Diploma/GED Difficulty w/ Childcare or Family Care: No Living arrangements: with family Spiritual care concerns: No Comments PMH - cholecystitis, GERD, esophageal stricture Meds Home Medications and Allergies Home Medications Medication Instructions Recorded Confirmed Type omeprazole 40 mg capsule,delayed 40 mg PO DAILY #90 caps 03/20/22 07/07/22 Rx release Allergies Allergy/AdvReac Type Severity Reaction Status Date / Time No Known Allergies Allergy Verified 07/07/22 00:49 Vital Signs Vital Signs -
--- NOTE | 2022-07-07 14:33 | PM.IMHP ---
H&P: HPI History of Present Illness Date/Time: 07/07/22 14:33 Chief Complaint: ?Abdominal Pain Narrative: ED-HPI narrative: ?this is a 62-year-old male presenting ED with right upper quadrant pain.? The patient was seen in our emergency department on 07/01 .? Patient was admitted for concerns for cholecystitis.? After the patient was evaluated by Dr. Anderson and discharged with outpatient follow-up.? ? The patient's pain recurred this evening.? He has had temperatures up to 103.? He has been taking Tylenol home with some relief. Patient states he was given pain medication and in ER the pain is better now, patient seen by GI and explained to the patient since patient is lipase out over a 13,000 and LFT I elevated most likely patient had stone or sludge in his common bile duct and he will need ERCP to remove sludge this may help with pain and bring his lipase and LFT down, will keep patient NPO and patient is scheduled for the ERCP tomorrow, upon arrival patient had a fever of 103 and elevated white count patient started on Zosyn and will follow-up on blood culture, patient seen by surgery service once patient is more clinically stable after the ERCP patient may have cholecystectomy. Will continue to monitor. Patient with a acute pancreatitis, ascending cholangitis most likely will stay in the hospital for 2 midnights, patient is admitted as inpatient Review of Systems Constitutional: Constitutional: Reports as per HPI, Reports anorexia, Denies chills, Reports fatigue, Denies fever(s), Reports lethargy, Reports malaise, Reports poor appetite, Reports weakness, Denies weight gain and Denies weight loss Eyes: Eyes: Reports no additional eye complaints ENT: Reports system reviewed and no additional complaints, except as documented Cardiovascular: Cardiovascular: Reports no additional cardiovascular complaints Respiratory: Respiratory: Reports no additional respiratory complaints Gastrointestinal: Gastrointestinal: Reports as per HPI, Reports abdominal pain, Reports bloating, Reports GI cramping, Reports early satiety, Reports heartburn, Reports nausea and Denies vomiting Genitourinary: Genitourinary: Reports no additional male genitourinary complaints Musculoskeletal: Musculoskeletal: Reports no additional musculoskeletal complaints Integumentary/Breasts: Skin/Breast: Reports system reviewed and no additional complaints, except as docu Neurologic: Reports system reviewed and no additional complaints, except as documented Psychiatric: Psychiatric: Reports no additional psychiatric complaints Endocrine: Endocrine: Reports no additional endocrine complaints Hematologic/Lymphatic: Hematologic/Lymphatic: Reports no additional hematologic/lymphatic complaints Allergic/Immunologic: Allergic/Immunologic: Reports no additional allergic/immunologic complaints PMFSH Surgical History Surgical History H/O hernia repair Family History Family History Mother Cerebrovascular accident Social History Social History Smoking status: Never smoker Tobacco type: cigarettes Alcohol intake: never Substance use: never Substance use type: does not use Lack of Transportation: No Lack of Food: Never True Current Housing: I Have Housing Concerned About Future Housing: No Difficulty Paying Gas/Electric Bills: No Difficulty Paying for Meds: No Currently Unemployed: No Education: High School Diploma/GED Difficulty w/ Childcare or Family Care: No Living arrangements: with family Spiritual care concerns: No Meds Home Medications and Allergies Home Medications Medication Instructions Recorded Confirmed Type omeprazole 40 mg capsule,delayed 40 mg PO DAILY #90 caps 03/20/22 07/07/22 Rx release Allergies Allergy/AdvReac Type Severity Reaction Status Date
[2022-07-08] VITALS (23 sets, daily range): BP systolic 105–132; BP diastolic 50–90; PULSE 57–71; RESP 14–20; TEMP 36.1–36.8; O2SAT 97–100
[2022-07-08] MEDS: LACTATED RINGERS 1,000 ML 125 ML IV CONT ×3 (02:31→23:20)
[2022-07-08 04:33] LABS: Hematocrit 35.1 % (42.0-52.0); Hemoglobin 11.3 g/dL (14.0-18.0); Mean Corpuscular HGB Conc 32.2 g/dl (32-36); Mean Corpuscular Hemoglobin 30.1 pg (26-34); Mean Corpuscular Volume 93.4 fl (80-100); Mean Platelet Volume 9.8 fl (7.4-10.4); Platelet Count Result 158 k/mm3 (150-375); Red Blood Count 3.76 M/mm3 (4.6-6.20); Red Cell Distribution Width 12.3 % (11.5-14.5); White Blood Count 5.7 K/mm3 (4.5-10.0)
[2022-07-08 05:14] LABS: Alanine Aminotransferase 119 U/L (6-50); Albumin Level 3.1 g/dL (3.5-5.1); Alkaline Phosphatase 168 U/L (38-126); Anion Gap 7 mmol/L (8-16); Aspartate Amino Transferase 71 U/L (17-59); Bilirubin,Total 1.2 mg/dL (0.2-1.3); Blood Urea Nitrogen 14 mg/dL (9-20); Carbon Dioxide 22 mmol/L (22-30); Chloride 107 mmol/L (98-107); Estimated CRCL calculation 90 ml/min; Estimated Glomerular Filt Rate > 60; Glucose 78 mg/dL (65-110); Magnesium 1.9 mg/dL (1.6-2.3); Potassium 3.4 mmol/L (3.4-5.0); Sodium 136 mmol/L (137-145)
[2022-07-08 05:25] LABS: Lipase 7883 U/L (23-300)
[2022-07-08] MEDS: PIPERACILLN/TAZ 3.375GM/NS50ML 3.375 GM/50 ML BAG IVPB ×4 (05:28→23:16)
[2022-07-08] MEDS: LACTATED RINGERS 1,000 ML 150 ML IV CONT (07:47)
--- NOTE | 2022-07-08 07:55 | WPDANESEPPF ---
Anes - Initial Pre Proc Eval Procedure: Operation Date: 07/08/22 08:30 Proposed Procedures p Endoscopic Retro Cholangiopancreatogram - Flavio Turcios MD Date/Time: 07/08/22 07:55 Surgeon: Vanda Louis DO Pre Op Diagnosis: ascending cholangitis Patient Data Age: 62 Gender: M Height: 1.8 m Weight: 102.7 kg Last Vital Signs Temp 97.0 F L 07/08/22 07:45 Pulse 66 07/08/22 07:45 Resp 18 07/08/22 07:45 BP 132/90 07/08/22 07:45 Pulse Ox 100 07/08/22 07:45 O2 Del Method Room Air 07/08/22 07:45 Allergies Allergy/AdvReac Type Severity Reaction Status Date / Time No Known Allergies Allergy Verified 07/07/22 00:49 Home Medications Medication Instructions Recorded Confirmed Type omeprazole 40 mg capsule,delayed 40 mg PO DAILY #90 caps 03/20/22 07/07/22 Rx release Laboratory Tests 07/08/22 04:18 WBC 5.7 K/mm3 (4.5-10.0) RBC 3.76 L M/mm3 (4.6-6.20) Hgb 11.3 L g/dL (14.0-18.0) Hct 35.1 L % (42.0-52.0) MCV 93.4 D fl (80-100) MCH 30.1 pg (26-34) MCHC 32.2 g/dl (32-36) RDW 12.3 % (11.5-14.5) Plt Count 158 k/mm3 (150-375) MPV 9.8 fl (7.4-10.4) Sodium 136 L mmol/L (137-145) Potassium 3.4 mmol/L (3.4-5.0) Chloride 107 mmol/L (98-107) Carbon Dioxide 22 mmol/L (22-30) Anion Gap 7 L mmol/L (8-16) BUN 14 mg/dL (9-20) Creatinine 0.90 mg/dL (0.7-1.3) Estim Creat Clear Calc 90 ml/min Estimated GFR > 60 (59 - ) Glucose 78 mg/dL (65-110) Calcium 8.0 L mg/dL (8.4-10.2) Magnesium 1.9 mg/dL (1.6-2.3) Total Bilirubin 1.2 mg/dL (0.2-1.3) AST 71 H U/L (17-59) ALT 119 H U/L (6-50) Alkaline Phosphatase 168 H U/L (38-126) Total Protein 6.0 L g/dL (6.3-8.2) Albumin 3.1 L g/dL (3.5-5.1) Lipase 7883 H U/L (23-300) Patient hx anesthesia problems: none Family hx anesthesia problems: none Results Review: All pre-operative results and documents have been reviewed as part of the pre-operative evaluation. [facility]LY [facility] Surgical History Surgical History H/O hernia repair Family History Family History Mother Cerebrovascular accident Social History Social History Smoking status: Never smoker Tobacco type: cigarettes Alcohol intake: never Substance use: never Substance use type: does not use Lack of Transportation: No Lack of Food: Never True Current Housing: I Have Housing Concerned About Future Housing: No Difficulty Paying Gas/Electric Bills: No Difficulty Paying for Meds: No Currently Unemployed: No Education: High School Diploma/GED Difficulty w/ Childcare or Family Care: No Living arrangements: with family Spiritual care concerns: No Anes - Eval Final PreProcedure Day of Procedure 07/08/22 07:55 Patient weight: obese Heart: regular rate and rhythm Lungs: clear to auscultation Airway: Mallampati scale class III Neurological: alert and oriented Last oral intake: >/= 8 hours ASA classification: III Emergent: no Anesthetic plan: proceed Anesthesia type and monitoring: general ETT and standard monitoring Results Review: All pre-operative results and documents have been reviewed as part of the pre-operative evaluation. Informed Consent: The patient's anesthetic plan and its attendant risks and benefits were discussed with the patient/family/POA. Questions were solicited and answers provided to the satisfaction of the patient/family/POA.
[2022-07-08] MEDS: GLUCAGON FOR INJ 1 MG VIAL IM (08:36)
[2022-07-08] MEDS: PANTOPRAZOLE SODIUM IV 40 MG VIAL IV PUSH ×2 (11:12→20:36)
--- NOTE | 2022-07-08 13:30 | PM.PNGS ---
Progress Note: A&P Assessment and Plan (1) Biliary acute pancreatitis: Code(s): K85.10 - Biliary acute pancreatitis without necrosis or infection Status: Acute Assessment and Plan: S/p ERCP today with sphincterotomy and removal of sludge from the common duct. Lipase down to 7k today. Abdominal pain resolved. Tolerating clear liquids. Discussed the option of proceeding with a laparoscopic cholecystectomy under general anesthesia by Dr. Bnod during this hospitalization. Description of the procedure, risks, benefits, expected outcomes, and expected recovery were discussed with the patient in detail. We discussed the risks of bile leak and bile duct injury, liver/bowel injury, bleeding, and infection. Also discussed the possibility of having to convert to an open procedure if necessary. Patient agrees to proceed when appropriate. Will repeat labs tomorrow and make him NPO after midnight. Possibly proceed with surgery tomorrow if labs and patient are stable. (2) Ascending cholangitis: Code(s): K83.09 - Other cholangitis Status: Acute Assessment and Plan: Continue IV Zosyn, WBC normalized, s/p ERCP today. Plan I have discussed the patient's case and plan of care with Dr. Bond. Subjective Subjective Date/Time Seen: 07/08/22 13:30 Patient reports: no new complaints, feels better, pain is less, tolerating liquids well and afebrile (since 07/06) Interval history: Chart reviewed. Patient seen this afternoon following his ERCP with sphincterotomy and removal of sludge from common duct. Lipase and LFTs trending down today. He denies any abdominal pain, nausea, or vomiting. He is tolerating clear liquids. No other complaints at this time. Review of Systems Review of Systems: All systems reviewed & are unremarkable except as noted in HPI and below Exam Const: General: comfortable and no acute distress Orientation/consciousness: patient oriented x3 GI: Inspection: non-distended GI Palp: Yes Soft to palpation, No Tenderness to palpation present (GI), No Guarding due to palpation present (GI) and No Rebound tenderness present Auscultation: normal bowel sounds Objective Data Vital Signs Vital Signs: Vital Signs - 24 hr 07/07/22 14:00 07/07/22 16:00 07/07/22 16:22 Temperature 96.0 F L Pulse Rate 48 L 51 L Respiratory Rate 20 Blood Pressure 103/64 Pulse Oximetry 100 Oxygen Delivery Room Air Oxygen Flow Rate 07/07/22 16:00 07/07/22 18:00 07/07/22 20:00 Temperature 97.7 F Pulse Rate 51 L 63 63 Respiratory Rate 16 Blood Pressure 124/70 Pulse Oximetry 100 Oxygen Delivery Oxygen Flow Rate 07/07/22 20:00 07/07/22 20:00 07/07/22 21:04 Temperature Pulse Rate 63 59 L 65 Respiratory Rate 16 Blood Pressure Pulse Oximetry 100 Oxygen Delivery Room Air Oxygen Flow Rate 07/07/22 23:26 07/07/22 23:24 07/08/22 00:00 Temperature 98 F Pulse Rate 65 65 62 Respiratory Rate 20 20 Blood Pressure 126/60 Pulse Oximetry 100 100 Oxygen Delivery Room Air Oxygen Flow Rate 07/08/22 01:44 07/08/22 03:31 07/08/22 03:46 Temperature 97.8 F Pulse Rate 59 L 66 66 Respiratory Rate 20 20 Blood Pressure 127/67 Pulse Oximetry 99 99 Oxygen Delivery Room Air Oxygen Flow Rate 07/08/22 04:00 07/08/22 05:10 07/08/22 07:45 Temperature 97.0 F L Pulse Rate 63 63 66 Respiratory Rate 18 Blood Pressure 132/90 Pulse Oximetry 100 Oxygen Delivery Room Air Oxygen Flow Rate 07/08/22 08:54 07/08/22 09:04 07/08/22 09:14 Temperature 97.0 F L Pulse Rate 58 L 61 66 Respiratory Rate 17 17 20 Blood Pressure 106/62 105/62 115/67 Pulse Oximetry 100 100 99 Oxygen Delivery Simple Face Mask Room Air Room Air Oxygen Flow Rate 4 07/08/22 09:24 07/08/22 09:34 07/08/22 09:44 Temperature Pulse Rate 67 63 61 Respiratory Rate 19 15 17 Blood Pressure 114/71 117/72 109/71 Pulse Oximetry 100 99 100 Oxygen Delivery Room Air Ro
--- NOTE | 2022-07-08 17:46 | WPDPN ---
Progress Note: A&P Assessment and Plan (1) Biliary acute pancreatitis: Code(s): K85.10 - Biliary acute pancreatitis without necrosis or infection Status: Acute Assessment and Plan: ED-HPI narrative: ?this is a 62-year-old male presenting ED with right upper quadrant pain.? The patient was seen in our emergency department on 07/01 .? Patient was admitted for concerns for cholecystitis.? After the patient was evaluated by Dr. Anderson and discharged with outpatient follow-up.? ? The patient's pain recurred this evening.? He has had temperatures up to 103.? He has been taking Tylenol home with some relief. 07/08/2022 interval history: Patient states he was given pain medication and in ER the pain is better now, patient seen by GI and explained to the patient since patient lipase over a 13,000 and LFT are elevated most likely patient had stone or sludge in his common bile duct and he will need ERCP to remove sludge this may help with pain and bring his lipase and LFT down, today patient had ERCP and sludge was removed, patient states is feeling well his lipase and LFT are trending down, patient seen by surgery service recommended cholecystectomy is scheduled for tomorrow, upon arrival patient had a fever of 103 and elevated white count patient started on Zosyn and will follow-up on blood culture, Will continue to monitor. (2) Acute pancreatitis: Code(s): K85.90 - Acute pancreatitis without necrosis or infection, unspecified Status: Acute Assessment and Plan: Upon arrival patient lipase are over 13,000, most likely secondary to sludge or stone and bile duct patient will have ERCP tomorrow and further recommendation to follow (3) Ascending cholangitis: Code(s): K83.09 - Other cholangitis Status: Acute Assessment and Plan: Patient with abdominal, fever, elevated white and lipase suspect most likely patient has ascending cholangitis Subjective Date/time seen: 07/08/22 17:46 Interval history: ED-HPI narrative: ?this is a 62-year-old male presenting ED with right upper quadrant pain.? The patient was seen in our emergency department on 07/01 .? Patient was admitted for concerns for cholecystitis.? After the patient was evaluated by Dr. Anderson and discharged with outpatient follow-up.? ? The patient's pain recurred this evening.? He has had temperatures up to 103.? He has been taking Tylenol home with some relief. 07/08/2022 interval history: Patient states he was given pain medication and in ER the pain is better now, patient seen by GI and explained to the patient since patient lipase over a 13,000 and LFT are elevated most likely patient had stone or sludge in his common bile duct and he will need ERCP to remove sludge this may help with pain and bring his lipase and LFT down, today patient had ERCP and sludge was removed, patient states is feeling well his lipase and LFT are trending down, patient seen by surgery service recommended cholecystectomy is scheduled for tomorrow, upon arrival patient had a fever of 103 and elevated white count patient started on Zosyn and will follow-up on blood culture, Will continue to monitor. Review of Systems Constitutional: Constitutional: Reports as per HPI, Reports anorexia, Denies chills, Reports fatigue, Denies fever(s), Reports lethargy, Reports malaise, Reports poor appetite, Reports weakness, Denies weight gain and Denies weight loss Eyes: Eyes: Reports no additional eye complaints ENT: Reports system reviewed and no additional complaints, except as documented Cardiovascular: Cardiovascular: Reports no additional cardiovascular complaints Respiratory: Respiratory: Reports no additional respiratory complaints Gastrointestinal: Gastrointestinal: Reports as per HPI, Reports abdominal pain, Reports bloating, Reports GI cramping, Reports early satiety, Reports heartburn, Reports nausea and Denies vomiting Genitourinary: Genitourinary: Reports no additional male david
[2022-07-09] VITALS (10 sets, daily range): BP systolic 112–134; BP diastolic 56–84; PULSE 54–74; RESP 16–20; TEMP 35.8–36.7; O2SAT 98–100
[2022-07-09 04:36] LABS: Hematocrit 33.9 % (42.0-52.0); Hemoglobin 11.4 g/dL (14.0-18.0); Mean Corpuscular HGB Conc 33.6 g/dl (32-36); Mean Corpuscular Hemoglobin 29.6 pg (26-34); Mean Corpuscular Volume 88.1 fl (80-100); Mean Platelet Volume 9.5 fl (7.4-10.4); Platelet Count Result 203 k/mm3 (150-375); Red Blood Count 3.85 M/mm3 (4.6-6.20); Red Cell Distribution Width 12.2 % (11.5-14.5); White Blood Count 4.7 K/mm3 (4.5-10.0)
[2022-07-09 05:08] LABS: Alanine Aminotransferase 90 U/L (6-50); Alkaline Phosphatase 145 U/L (38-126); Anion Gap 6 mmol/L (8-16); Aspartate Amino Transferase 47 U/L (17-59); Blood Urea Nitrogen 7 mg/dL (9-20); Calcium 7.9 mg/dL (8.4-10.2); Carbon Dioxide 27 mmol/L (22-30); Chloride 105 mmol/L (98-107); Estimated CRCL calculation 90 ml/min; Estimated Glomerular Filt Rate > 60; Glucose 102 mg/dL (65-110); Magnesium 1.9 mg/dL (1.6-2.3); Potassium 3.4 mmol/L (3.4-5.0); Sodium 138 mmol/L (137-145)
[2022-07-09 05:54] LABS: Lipase 3070 U/L (23-300)
[2022-07-09] MEDS: PIPERACILLN/TAZ 3.375GM/NS50ML 3.375 GM/50 ML BAG IVPB ×3 (05:55→17:21)
[2022-07-09] MEDS: PANTOPRAZOLE SODIUM IV 40 MG VIAL IV PUSH ×2 (08:55→20:18)
[2022-07-09] MEDS: LACTATED RINGERS 1,000 ML 125 ML IV CONT ×2 (08:55→17:27)
--- NOTE | 2022-07-09 11:04 | PM.PNGS ---
Progress Note: A&P Assessment and Plan (1) Biliary acute pancreatitis: Code(s): K85.10 - Biliary acute pancreatitis without necrosis or infection Status: Acute Assessment and Plan: improved, ERCP reviewed, will setup for interval cholecystectomy tomorrow Subjective Subjective Date/Time Seen: 07/09/22 11:04 Interval history: feels better, no pain, no N/V, ravi clears Review of Systems Review of Systems: All systems reviewed & are unremarkable except as noted in HPI and below Exam Const: General: cooperative, comfortable and no acute distress Resp: Auscultation: clear to auscultation bilaterally Cardio: Rate: regular rate Rhythm: regular rhythm GI: Inspection: normal to inspection and non-distended GI Palp: No abdominal tenderness, Yes Soft to palpation, No Tenderness to palpation present (GI), No Guarding due to palpation present (GI) and No Rigid due to palpation Objective Data Vital Signs Vital Signs: Vital Signs - 24 hr 07/08/22 12:00 07/08/22 12:00 07/08/22 12:00 Temperature 36.4 C Pulse Rate 66 66 Respiratory Rate 14 Blood Pressure 109/50 L Pulse Oximetry 100 100 Oxygen Delivery Room Air 07/08/22 14:00 07/08/22 16:00 07/08/22 16:00 Temperature Pulse Rate 62 64 Respiratory Rate Blood Pressure Pulse Oximetry 100 Oxygen Delivery Room Air 07/08/22 16:00 07/08/22 18:00 07/08/22 20:00 Temperature 36.5 C Pulse Rate 63 67 Respiratory Rate 16 Blood Pressure 131/69 Pulse Oximetry 100 97 Oxygen Delivery Room Air 07/08/22 20:00 07/08/22 20:00 07/08/22 22:00 Temperature 36.2 C L Pulse Rate 67 67 63 Respiratory Rate 18 Blood Pressure 124/72 Pulse Oximetry 97 Oxygen Delivery 07/08/22 23:21 07/09/22 00:00 07/09/22 00:00 Temperature 36.8 C Pulse Rate 57 L 61 Respiratory Rate 16 Blood Pressure 126/65 Pulse Oximetry 98 98 Oxygen Delivery Room Air 07/09/22 02:00 07/09/22 04:00 07/09/22 04:00 Temperature 36.5 C Pulse Rate 54 L 74 Respiratory Rate 20 Blood Pressure 112/56 L Pulse Oximetry 100 100 Oxygen Delivery Room Air 07/09/22 04:00 07/09/22 06:00 07/09/22 08:00 Temperature 36.7 C Pulse Rate 56 L 55 L 57 L Respiratory Rate 16 Blood Pressure 128/68 Pulse Oximetry 99 Oxygen Delivery 07/09/22 08:00 07/09/22 08:00 07/09/22 10:00 Temperature Pulse Rate 57 L 69 Respiratory Rate Blood Pressure Pulse Oximetry 99 Oxygen Delivery Room Air Intake/Output Intake/Output: Intake & Output 07/06/22 07/07/22 07/08/22 07/09/22 23:59 23:59 23:59 23:59 Intake Total 5300 5000 1050 Output Total 925 2375 2500 Balance 4375 [id number] -[id number] Meds/Results Medications: Active Medications Generic Name Dose Route Start Last Admin Trade Name Freq PRN Reason Stop Dose Admin Hydromorphone HCl 0.5 mg 07/07/22 06:21 Hydromorphone Hcl Inj (*Crx) 1 Mg/Ml Syr IV PUSH Q4H PRN Pain Rated 7-10 Piperacillin/Tazobactam/Dextrose 3.375 gm in 50 mls @ 100 mls/hr 07/07/22 11:00 07/09/22 06:32 Zosyn 3.375 Gm/Ns 50 Ml IVPB Infused Q6HR BRUCE Infusion Lactated Ringer's 1,000 mls @ 125 mls/hr 07/07/22 06:25 07/09/22 08:55 Lr - Lactated Ringers Iv IV CONT 125 mls/hr .Q8H BRUCE Administration Pantoprazole Sodium 40 mg 07/08/22 09:00 07/09/22 08:55 Pantoprazole Sodium Iv 40 Mg Vial IV PUSH 40 mg Q12HR BRUCE Administration Radiology Results: ITS Impressions Abdomen/Pelvis CT 07/07/22 07:28 IMPRESSION: 1. Gallbladder wall thickening with persistent pericholecystic edema, suspicious for cholecystitis. Endo Retro Cholangiopancreatogram 07/08/22 08:59 IMPRESSION: 1. Mildly dilated common duct. Please refer to the ERCP procedure note for additional details. Labs Labs: Laboratory Results - last 24 hr 07/09/22 04:20 WBC 4.7 RBC 3.85 L Hgb 11.4 L Hct 33.9 L MCV 88.1 D MCH 29.6 MCHC 33.6 RDW 12.2
[2022-07-09] MEDS: POTASSIUM CHLORIDE 20 MEQ TABLET 40 MEQ PO (13:26)
--- NOTE | 2022-07-09 13:36 | WPDANESPN ---
Anes - Prog Note Post-Op Date/Time: 07/09/22 13:36 Vital Signs: Last Vital Signs Temp 36.1 C L 07/09/22 11:40 Pulse 69 07/09/22 11:40 Resp 18 07/09/22 11:40 BP 132/73 07/09/22 11:40 Pulse Ox 100 07/09/22 11:40 O2 Del Method Room Air 07/09/22 08:00 O2 Flow Rate 4 07/08/22 08:54 Pain Score (VAS): 0 I/O: Intake & Output 07/08/22 07/09/22 07/09/22 23:59 07:59 15:59 Intake Total 1820 1050 Output Total 1500 1000 Balance 1820 -450 -1000 Laboratory Tests 07/09/22 04:20 07/09/22 04:20 07/09/22 04:20 WBC 4.7 RBC 3.85 L Hgb 11.4 L Hct 33.9 L MCV 88.1 D MCH 29.6 MCHC 33.6 RDW 12.2 Plt Count 203 MPV 9.5 Sodium 138 Potassium 3.4 Chloride 105 Carbon Dioxide 27 Anion Gap 6 L BUN 7 L D Creatinine 0.90 Estim Creat Clear Calc 90 Estimated GFR > 60 Glucose 102 Calcium 7.9 L Magnesium 1.9 Total Bilirubin 1.0 AST 47 ALT 90 H Alkaline Phosphatase 145 H Total Protein 6.0 L Albumin 3.0 L Lipase 3070 H Patient Feedback: Patient satisfied with anesthetic care.
--- NOTE | 2022-07-09 13:58 | PC.NURSE ---
This patient, Nemesio Toussaint Jr., was transferred to [facility] on 07/09/22 at 1358. Personal belongings sent with patient. Report given to AUBREY Daily. Appropriate documentation sent with patient.
--- NOTE | 2022-07-09 16:24 | PC.NURSE ---
This patient, Nemesio Toussaint , was received from IMU on 07/09/22 at 1355. Report received from AUBREY Yeh. Patient/family oriented to unit policies and routines
[2022-07-10] VITALS (10 sets, daily range): BP systolic 116–150; BP diastolic 72–84; PULSE 56–66; RESP 12–20; TEMP 36.2–36.6; O2SAT 93–100
[2022-07-10] MEDS: PIPERACILLN/TAZ 3.375GM/NS50ML 3.375 GM/50 ML BAG IVPB ×2 (00:04→05:00)
[2022-07-10] MEDS: LACTATED RINGERS 1,000 ML 125 ML IV CONT (02:33)
--- NOTE | 2022-07-10 06:00 | PC.NURSE ---
Surgical SBAR filled out, report given to Gabriela BURGOS. Pt transported to Pre-op per Gabriela BURGOS.
[2022-07-10] MEDS: LACTATED RINGERS 1,000 ML 30 ML IV CONT ×2 (06:10→09:18)
--- NOTE | 2022-07-10 07:16 | P.PNAN_ITS ---
Anes - Initial Pre Proc Eval Procedure: Operation Date: 07/08/22 08:30 Proposed Procedures p Endoscopic Retro Cholangiopancreatogram - Flavio Turcios MD Operation Date: 07/10/22 07:30 Proposed Procedures p Laparoscopic Cholecystectomy - Emilie Bond MD Date/Time: 07/10/22 07:16 Surgeon: Vanda Louis DO Pre Op Diagnosis: ascending cholangitis Patient Data Age: 62 Gender: M Height: 1.8 m Weight: 102.682 kg Last Vital Signs Temp 97.5 F L 07/10/22 06:18 Pulse 61 07/10/22 06:18 Resp 16 07/10/22 06:18 BP 137/80 07/10/22 06:18 Pulse Ox 100 07/10/22 06:18 O2 Del Method Room Air 07/10/22 06:18 O2 Flow Rate 4 07/08/22 08:54 Allergies Allergy/AdvReac Type Severity Reaction Status Date / Time No Known Allergies Allergy Verified 07/07/22 00:49 Home Medications Medication Instructions Recorded Confirmed Type omeprazole 40 mg capsule,delayed 40 mg PO DAILY #90 caps 03/20/22 07/07/22 Rx release Patient hx anesthesia problems: none Family hx anesthesia problems: none Results Review: All pre-operative results and documents have been reviewed as part of the pre- operative evaluation. FORMERLY [facility] Surgical History Surgical History H/O hernia repair Family History Family History Mother Cerebrovascular accident Social History Social History Smoking status: Never smoker Tobacco type: cigarettes Alcohol intake: never Substance use: never Substance use type: does not use Lack of Transportation: No Lack of Food: Never True Current Housing: I Have Housing Concerned About Future Housing: No Difficulty Paying Gas/Electric Bills: No Difficulty Paying for Meds: No Currently Unemployed: No Education: High School Diploma/GED Difficulty w/ Childcare or Family Care: No Living arrangements: with family Spiritual care concerns: No Anes - Eval Final PreProcedure Day of Procedure 07/10/22 07:16 Patient weight: obese Heart: regular rate and rhythm Lungs: clear to auscultation Airway: Mallampati scale class II Neurological: alert and oriented Last oral intake: >/= 8 hours ASA classification: III Emergent: no Anesthetic plan: proceed Anesthesia type and monitoring: general ETT and standard monitoring Results Review: All pre-operative results and documents have been reviewed as part of the pre- operative evaluation. Informed Consent: The patient's anesthetic plan and its attendant risks and benefits were discussed with the patient/family/POA. Questions were solicited and answers provided to the satisfaction of the patient/family/POA.
--- NOTE | 2022-07-10 07:20 | WPDHPUPDATE1 ---
History and Physical Update Update Date/Time: 07/10/22 07:20 History and Physical has been reviewed, including an updated exam of the patient. There are NO changes in the patient's condition. Risks, benefits, and alternatives have been discussed and questions answered. Patient agrees to proceed with procedure.
[2022-07-10] MEDS: BUPIVACAINE/EPINEPHRINE 0.25% 10 ML VIAL 30 ML INFILTRATE (07:54)
--- NOTE | 2022-07-10 08:59 | W.PM.PROC2 ---
Procedure Note - Detailed Date of Procedure 07/10/22 Pre-op Diagnosis biliary pancreatitis, acute cholecystitis, choledocholithiasis Post-op Diagnosis Same Procedure Performed laparoscopic cholecystectomy with extensive lysis of adhesions of approximately 45 minutes Surgeon Emilie Bond MD Anesthesia General Indications 62-year-old male presented to the hospital with acute biliary pancreatitis, cholecystitis with choledocholithiasis. The patient was admitted and subsequent ERCP was done with stone removal. At this point the patient is set up for interval cholecystectomy Findings severe cholecystitis Description of Procedure The patient was taken to the operating room placed in the supine position. After adequate induction of general anesthesia, the patient was prepped and draped in normal sterile fashion. A time-out was then performed to verify the patient's identity as well as the procedure being performed. I then made a 5 mm incision in the infraumbilical region. Through this, a Veress needle was placed into the peritoneal cavity and CO2 gas was then insufflated. After adequate pneumoperitoneum was achieved, the Veress needle was removed and a 5 mm optiview trocar was placed through this incision under direct visualization. I then placed the laparoscope through this trocar site and under direct visualization placed a further 12 mm subxiphoid port as well as 2 additional 5 mm ports in the right upper abdomen. There was noted to be an inflammatory mass in the right upper quadrant. This area was noted to be likely the gallbladder with plastered omental adhesions secondary to acute inflammation. An extensive lysis of adhesions was done to free up the gallbladder. This lysis of adhesions took approximately 45 minutes given the severity of the inflammation. This dissection was quite difficult as the tissue was very inflamed and friable and took approximately 3 times the work/time of normal cholecystectomy. The gallbladder was then identified and was noted to be severely inflamed, distended, and full of gallstones. Given the amount of inflammation, I decompressed the gallbladder with an ovarian needle. Hydrops cholecystitis was noted at this point. I was then able to place a grasper at the dome of the gallbladder and this was retracted anterior and cephalad up over the liver. A 2nd retractor was then placed at the infundibulum and retracted laterally, this allowed visualization of the triangle of Calot. The tissue in this area was very friable. I then was able to visualize the cystic duct in its entirety from its proximal insertion into the gallbladder, to its distal junction with the common hepatic/common bile duct junction. At this point, I carefully skeletonized the proximal cystic duct with the [place] dissector. I then clipped and transected the proximal cystic duct. Next I visualized the cystic artery. Again the artery was skeletonized, clipped, and transected. I then used the Bovie cautery to take down the peritoneal attachments of the gallbladder off the liver bed. This was somewhat difficult given the amount of inflammation in the posterior space. Once the gallbladder specimen was completely detached, an endo-pouch was placed through the 12 mm port site. I then placed the gallbladder specimen into the Endo pouch and removed the endo-pouch from the 12 mm port site. The specimen will now be sent to pathology for further review. I then copiously irrigated the right upper quadrant. Some mild oozing was noted in the liver bed and this was controlled with the bovie cautery. Hemostasis was noted in the liver bed. The previously placed clips on the cystic duct were noted be non secure. I then placed a endoloop around the cystic duct stump under direct visualization. No other pathology was noted in the right upper quadrant. I then moved the laparoscope to the subxiphoid port. No iatrogenic injury or other pathology was noted in the lower
[2022-07-10] MEDS: fentaNYL CITRATE INJ (*CRX) 100 MCG/2 ML VIAL 25 MCG IV PUSH ×2 (09:39→09:44)
--- NOTE | 2022-07-10 10:10 | PC.NURSE ---
Back from OR via stretcher. Report received from AUBREY Richardson.
[2022-07-10] MEDS: PANTOPRAZOLE SODIUM IV 40 MG VIAL IV PUSH (10:24)
[2022-07-10] MEDS: HYDROcodone/acetaminophen (*CRX) 7.5-325 MG TABLET 1 TAB PO ×2 (11:04→17:24)
[2022-07-10 12:14] LABS: Hematocrit 39.8 % (42.0-52.0); Hemoglobin 13.1 g/dL (14.0-18.0); Mean Corpuscular HGB Conc 32.9 g/dl (32-36); Mean Corpuscular Volume 91.3 fl (80-100); Mean Platelet Volume 9.4 fl (7.4-10.4); Platelet Count Result 262 k/mm3 (150-375); Red Blood Count 4.36 M/mm3 (4.6-6.20); Red Cell Distribution Width 12.3 % (11.5-14.5); White Blood Count 7.3 K/mm3 (4.5-10.0)
[2022-07-10 12:30] LABS: Alanine Aminotransferase 106 U/L (6-50); Albumin Level 3.8 g/dL (3.5-5.1); Alkaline Phosphatase 146 U/L (38-126); Anion Gap 4 mmol/L (8-16); Aspartate Amino Transferase 79 U/L (17-59); Bilirubin,Total 0.8 mg/dL (0.2-1.3); Blood Urea Nitrogen 6 mg/dL (9-20); Calcium 8.5 mg/dL (8.4-10.2); Carbon Dioxide 32 mmol/L (22-30); Chloride 103 mmol/L (98-107); Estimated CRCL calculation 81 ml/min; Estimated Glomerular Filt Rate > 60; Glucose 143 mg/dL (65-110); Lipase 607 U/L (23-300); Magnesium 1.8 mg/dL (1.6-2.3); Potassium 4.5 mmol/L (3.4-5.0); Sodium 139 mmol/L (137-145)
--- NOTE | 2022-07-10 17:04 | PM.DS ---
DS: Admitting Diagnosis Discharge Date 07/10/2022 Admitting Diagnosis Abdominal pain DS: Discharge Diagnosis Discharge Diagnosis (1) Biliary acute pancreatitis: Code(s): K85.10 - Biliary acute pancreatitis without necrosis or infection Status: Acute Assessment and Plan: ED-HPI narrative: ?this is a 62-year-old male presenting ED with right upper quadrant pain.? The patient was seen in our emergency department on 07/01 .? Patient was admitted for concerns for cholecystitis.? After the patient was evaluated by Dr. Anderson and discharged with outpatient follow-up.? ? The patient's pain recurred this evening.? He has had temperatures up to 103.? He has been taking Tylenol home with some relief. 07/08/2022 interval history: Patient states he was given pain medication and in ER the pain is better now, patient seen by GI and explained to the patient since patient lipase over a 13,000 and LFT are elevated most likely patient had stone or sludge in his common bile duct and he will need ERCP to remove sludge this may help with pain and bring his lipase and LFT down, today patient had ERCP and sludge was removed, patient states is feeling well his lipase and LFT are trending down, patient seen by surgery service recommended cholecystectomy is scheduled for tomorrow, upon arrival patient had a fever of 103 and elevated white count patient started on Zosyn and will follow-up on blood culture, Will continue to monitor. (2) Acute pancreatitis: Code(s): K85.90 - Acute pancreatitis without necrosis or infection, unspecified Status: Acute Assessment and Plan: Upon arrival patient lipase are over 13,000, most likely secondary to sludge or stone and bile duct patient will have ERCP tomorrow and further recommendation to follow (3) Ascending cholangitis: Code(s): K83.09 - Other cholangitis Status: Acute Assessment and Plan: Patient with abdominal, fever, elevated white and lipase suspect most likely patient has ascending cholangitis DS: Summary Hospital Course Reason for hospitalization: ?Abdominal Pain Narrative: ED-HPI narrative: ?this is a 62-year-old male presenting ED with right upper quadrant pain.? The patient was seen in our emergency department on 07/01 .? Patient was admitted for concerns for cholecystitis.? After the patient was evaluated by Dr. Anderson and discharged with outpatient follow-up.? ? The patient's pain recurred this evening.? He has had temperatures up to 103.? He has been taking Tylenol home with some relief. Patient states he was given pain medication and in ER the pain is better now, patient seen by GI and explained to the patient since patient is lipase out over a 13,000 and LFT I elevated most likely patient had stone or sludge in his common bile duct and he will need ERCP to remove sludge this may help with pain and bring his lipase and LFT down, will keep patient NPO and patient is scheduled for the ERCP tomorrow, upon arrival patient had a fever of 103 and elevated white count patient started on Zosyn and will follow-up on blood culture, patient seen by surgery service once patient is more clinically stable after the ERCP patient may have cholecystectomy.? Will continue to monitor. Patient with a acute pancreatitis, ascending cholangitis most likely will stay in the hospital for 2 midnights, patient is admitted as inpatient Hospital Course: ?Patient states he was given pain medication and in ER the pain is better now, patient seen by GI and explained to the patient since patient? lipase over a 13,000 and LFT are elevated most likely patient had stone or sludge in his common bile duct and he will need ERCP to remove sludge this may help with pain and bring his lipase and LFT down, on 07/08 patient had ERCP and sludge was removed, patient states is feeling well his lipase are trending [place] 3070 [place] [id number] upon arrival,? patient seen by surgery service recommended cholecystectomy which was jose
--- NOTE | 2022-07-18 17:58 | WPDPN ---
Progress Note: A&P Assessment and Plan (1) Biliary acute pancreatitis: Code(s): K85.10 - Biliary acute pancreatitis without necrosis or infection Status: Acute Assessment and Plan: ED-HPI narrative: ?this is a 62-year-old male presenting ED with right upper quadrant pain.? The patient was seen in our emergency department on 07/01 .? Patient was admitted for concerns for cholecystitis.? After the patient was evaluated by Dr. Anderson and discharged with outpatient follow-up.? ? The patient's pain recurred this evening.? He has had temperatures up to 103.? He has been taking Tylenol home with some relief. 07/09/2022 interval history: Patient states he was given pain medication and in ER the pain is better now, patient seen by GI and explained to the patient since patient lipase over a 13,000 and LFT are elevated most likely patient had stone or sludge in his common bile duct and he will need ERCP to remove sludge this may help with pain and bring his lipase and LFT down, on 07/08 patient had ERCP and sludge was removed, patient states is feeling well his lipase are trending [place] 3070 [place] [id number] upon arrival, patient seen by surgery service recommended cholecystectomy which was placed today, upon arrival patient had a fever of 103 and elevated white count patient was started on Zosyn and will follow-up on blood culture, Will continue to monitor. (2) Acute pancreatitis: Code(s): K85.90 - Acute pancreatitis without necrosis or infection, unspecified Status: Acute Assessment and Plan: Upon arrival patient lipase are over 13,000, most likely secondary to sludge or stone and bile duct patient will have ERCP tomorrow and further recommendation to follow (3) Ascending cholangitis: Code(s): K83.09 - Other cholangitis Status: Acute Assessment and Plan: Patient with abdominal, fever, elevated white and lipase suspect most likely patient has ascending cholangitis Subjective Date/time seen: 07/09/2022 Interval history: ED-HPI narrative: ?this is a 62-year-old male presenting ED with right upper quadrant pain.? The patient was seen in our emergency department on 07/01 .? Patient was admitted for concerns for cholecystitis.? After the patient was evaluated by Dr. Anderson and discharged with outpatient follow-up.? ? The patient's pain recurred this evening.? He has had temperatures up to 103.? He has been taking Tylenol home with some relief. 07/09/2022 interval history: Patient states he was given pain medication and in ER the pain is better now, patient seen by GI and explained to the patient since patient lipase over a 13,000 and LFT are elevated most likely patient had stone or sludge in his common bile duct and he will need ERCP to remove sludge this may help with pain and bring his lipase and LFT down, on 07/08 patient had ERCP and sludge was removed, patient states is feeling well his lipase are trending down 3070 [place] [id number] upon arrival, patient seen by surgery service recommended cholecystectomy which was placed today, upon arrival patient had a fever of 103 and elevated white count patient was started on Zosyn and will follow-up on blood culture, Will continue to monitor. Objective Data Meds/Results Radiology Results: ITS Impressions Abdomen/Pelvis CT 07/07/22 07:28 IMPRESSION: 1. Gallbladder wall thickening with persistent pericholecystic edema, suspicious for cholecystitis. Endo Retro Cholangiopancreatogram 07/08/22 08:59 IMPRESSION: 1. Mildly dilated common duct. Please refer to the ERCP procedure note for additional details.
== END 2022-07-10 18:00 | disposition home or self-care (01) | DRG 418 ==
LOC: ANHED 07-07 06:33 → ANHIMU 07-07 08:13 → ANH3MEDSUR 07-09 14:02
PROVIDERS: Internal Medicine Gastroenterology; Surgery; Admitting Provider Internal Medicine; Emergency Provider Emergency Medicine; PCP Family Medicine; Visit Provider Family Medicine
PROC: 0F798ZZ Dilation of Common Bile Duct, Via Natural or Artificial Opening Endoscopic (ICD-10-PCS; CPT 43260; principal; 2022-07-08 08:30)
PROC: 0FT44ZZ Resection of Gallbladder, Percutaneous Endoscopic Approach (ICD-10-PCS; CPT 47562; principal; 2022-07-10 07:30)
DX: K85.10 Biliary acute pancreatitis without necrosis or infection (principal); K82.1 Hydrops of gallbladder; K83.09 Other cholangitis; K21.9 Gastro-esophageal reflux disease without esophagitis; K57.10 Diverticulosis of small intestine without perforation or abscess without bleeding; K82.8 Other specified diseases of gallbladder
CPT/HCPCS: 36415; 74177; 74329; 80053; 83605; 83690; 83735; 85025; 85027; 85610; 85730; 87040; 88304; 93005; 96361; 96365; 96367; 96375; 99285; A9270; C1751; C9113; J0131; J0330; J1100; J1170; J1610; J2250; J2405; J2543; J2704; J2710; J3010; J7030; J7120; Q9967